=== PATIENT | female | born 1985 | race Caucasian/White ===

== ENCOUNTER → 2019-01-22 10:16 | Outpatient (CLI) | payer OTHER, SELFPAY ==
[2019-01-22 09:53] VITALS: BMI 31.1
[2019-01-22 10:40] LABS: Absolute Lymphocyte Count 1.19 X10^3/ul (0.83-4.51); Absolute Neutrophil Count 2.8 X10^3/uL (2.0-7.7); Basophil# 0.03 X10^3/uL; Basophil% 0.7 % (0-1); Eosinophil# 0.07 X10^3/uL; Eosinophils% 1.6 % (0-5); Hematocrit 32.6 % (37-47); Hemoglobin 10.6 g/dl (12.0-15.0); Lymphocyte # 1.19 X10^3/ul (4.0); Lymphocyte % 26.7 % (19-41); Mean Corp Hgb Conc 32.5 g/gl (32-36); Mean Corpuscular Hgb 25.7 pg (27.0-32.0); Mean Corpuscular Volume 79.1 fL (81-99); Mean Platelet Vol. 9.7 fl (6.2-12.0); Monocyte# 0.37 X10^3/uL; Monocyte% 8.3 % (0-10); Neutrophil # 2.79 X10^3/uL (2.7-7.7); Neutrophil % 62.5 % (47-70); Platelet Count 217 K/mm3 (150-450); RBC Distribution Width CV 16.2 % (11.6-14.6); RBC Distribution Width SD 46.7 fl (35.1-43.9); Red Blood Count 4.12 M/mm3 (4.2-5.4); White Blood Count 4.5 K/mm3 (4.4-11.0)
[2019-01-22 10:41] LABS: POSITIVE COUNT NO; POSITIVE DIFFERENTIAL NO; POSITIVE MORPHOLOGY NO
[2019-01-22 11:06] LABS: T4 Free Direct 0.91 ng/dL (0.76-1.46); Thyroid Stim Hormone (TSH) 1.55 uIU/mL (0.358-3.74)
== END ==
PROVIDERS: Referring Provider Nurse Practitioner Women's Health; Visit Provider Nurse Practitioner Women's Health
DX: N92.1 Excessive and frequent menstruation with irregular cycle (principal)
CPT/HCPCS: 36415; 84439; 84443; 85025

== ENCOUNTER → 2019-02-04 13:18 | Outpatient (CLI) | payer OTHER, SELFPAY ==
[2019-01-22 09:53] VITALS: BMI 31.1
--- NOTE | 2019-02-04 13:20 | US_ITS ---
STUDY: ULTRASOUND OF THE FEMALE PELVIS - COMPLETE REASON FOR EXAM: Female, 33 years old. Dysfunctional uterine bleeding. LMP: January 03, 2019. TECHNIQUE: Transabdominal and Transvaginal TECHNICAL QUALITY: Adequate. COMPARISON: None. FINDINGS: The uterus is retroverted and is in a midline position. The uterus measures 7.7 cm x 6.2 cm x 6.0 cm. There is a Nabothian cyst of the cervix. The endometrium is thickened and measures 30.1 mm in thickness, and is hyperechoic. There is no demonstrated endometrial mass. There is no demonstrated myometrial mass. I.U.D. - The patient does not have an I.U.D. The right ovary is visualized. The right ovary measures 2.4 cm x 2.8 cm x 1.9 cm. A dominant follicle is seen within the right ovary measuring 1.4 cm x 0.9 cm x 1.3 cm. There is no visualized right adnexal mass or complex lesion. There is normal arterial and normal venous vascularity. The left ovary is visualized. The left ovary measures 3.4 cm x 2.4 cm x 1.6 cm. A dominant follicle is seen within it measuring 1.6 cm x 1.2 cm x 1.0 cm. There is no visualized left adnexal mass or complex lesion. There is normal arterial and normal venous vascularity. There is no fluid in the cul-de-sac. The pre void volume of the bladder was 410 ml. Polycystic ovary disease: No. US/Transvaginal Non- IMPRESSION: Thickened endometrium measuring 30.1 mm. Dominant follicles in both ovaries. Electronically Signed: Eric Grimes, at 12:44 EDT , Service support ,
--- NOTE | 2019-02-04 13:20 | US_ITS ---
STUDY: ULTRASOUND OF THE FEMALE PELVIS - COMPLETE REASON FOR EXAM: Female, 33 years old. Dysfunctional uterine bleeding. LMP: January 03, 2019. TECHNIQUE: Transabdominal and Transvaginal TECHNICAL QUALITY: Adequate. COMPARISON: None. FINDINGS: The uterus is retroverted and is in a midline position. The uterus measures 7.7 cm x 6.2 cm x 6.0 cm. There is a Nabothian cyst of the cervix. The endometrium is thickened and measures 30.1 mm in thickness, and is hyperechoic. There is no demonstrated endometrial mass. There is no demonstrated myometrial mass. I.U.D. - The patient does not have an I.U.D. The right ovary is visualized. The right ovary measures 2.4 cm x 2.8 cm x 1.9 cm. A dominant follicle is seen within the right ovary measuring 1.4 cm x 0.9 cm x 1.3 cm. There is no visualized right adnexal mass or complex lesion. There is normal arterial and normal venous vascularity. The left ovary is visualized. The left ovary measures 3.4 cm x 2.4 cm x 1.6 cm. A dominant follicle is seen within it measuring 1.6 cm x 1.2 cm x 1.0 cm. There is no visualized left adnexal mass or complex lesion. There is normal arterial and normal venous vascularity. There is no fluid in the cul-de-sac. The pre void volume of the bladder was 410 ml. Polycystic ovary disease: No. US/Pelvic (Non ) IMPRESSION: Thickened endometrium measuring 30.1 mm. Dominant follicles in both ovaries. Electronically Signed: Eric Grimes, at 12:44 EDT , Service support ,
[2019-02-04 14:53] LABS: Ferritin 9 ng/mL (8-252); Iron 258 ug/dL (50-170)
[2019-02-05 12:16] LABS: Transferrin 317 mg/dL (200-370)
== END ==
PROVIDERS: Nurse Practitioner Women's Health; Referring Provider Obstetrics & Gynecology; Visit Provider Obstetrics & Gynecology
DX: D64.9 Anemia, unspecified (principal); N93.9 Abnormal uterine and vaginal bleeding, unspecified
CPT/HCPCS: 36415; 76830; 76856; 82728; 83540; 84466

== ENCOUNTER 2019-03-28 06:48 | Day surgery (SDC) | payer OTHER, SELFPAY ==
[2019-01-22 09:53] VITALS: BMI 31.1
[2019-03-19 11:46] VITALS: BMI 31.1
--- NOTE | 2019-03-20 03:00 | HP.PCM_ITS ---
- Problem List (1) Irregular menses Status: Acute Comment: d and c hysteroscopy History and Physical Date of Admission: 03/28/19 Vital Signs 03/19/19 Body Mass Index (BMI) 31.1 03/19/19 Height 5 ft 2.75 in 03/19/19 Weight: 173 lb 03/19/19 Body Mass Index (BMI) 30.9 03/19/19 Blood Pressure 108/60 Intake Visit Reasons: pre op D&C Chief Complaint: pre op D&C [employer] History Professor Required: No Is patient in pain?: No Allergies No Known Allergies Allergy (Verified 03/19/19 11:45) Is last menstrual period known: No Post menopausal: No Patient : No : No PFS Medical History Anemia (Acute) Surgical History S/P (Resolved) [place] teeth removed (Resolved) Family History Father Diabetes Heart disease COPD (chronic obstructive pulmonary disease) Prostate cancer Mother Asthma Grandfather Lung cancer Heart disease Grandmother Pancreatic cancer Social History Smoking Status: Former smoker alcohol intake: current details: occasionally substance use type: does not use caffeine: Yes what type of physical activity do you participate in: walking, aerobics frequency: 3-4 times per week seatbelt use: always do you feel safe at home: Yes additional social history: Xjmrcuh-Gqls-Slpj Care 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 she has had irregular menses with heavy prolonged bleeding despite medical management and was recommended by another provider to have a d and c done but she had a change in insurance and needs done here. Pregancy History 4 Elective abortions Hx Para 5 Spontaneous abortions Hx # Term Pregnancies Ectopic pregnancies Hx # Pregnancies Multiple births 1 # of living children Past Pregnancies Del. Date Name GA/Weeks Outcome Route Bth Weight Gen Labor Lgth Anesthesia Del Locatn Provider FOB Unknown Cassandra-2003 Unknown Salena-2006 Unknown Carolina-2012 Unknown Pancho-2016 ROS Const Constitutional: Reports system reviewed and no additional complaints, except as docu Eyes Eyes: Reports system reviewed and no additional complaints, except as docu GI GI: Denies abdominal pain or change in bowel habits : Reports as per HPI Exam Const General: no acute distress Nutritional Appearance: well nourished Orientation: oriented x3 HENMT Head: normal to inspection Eyes General: appearance normal, both eyes and all related structures Neck Neck: normal visual inspection Resp Effort & Inspection: normal respiratory effort Cardio Rate: regular rate GI Inspection: normal to inspection Palpation: soft Assessment & Plan Problems 1. Irregular menses N92.6 d and c hysteroscopy Plan discussed options of d and c hysteroscopy alone versus this plus iud insertion or molly ablation. patient wishes to proceed with d and c alone. discussed surgical risks including risks of anesthesia, infection, bleeding, injury to bowel, bladder or blood vessels, and patient wishes to proceed with surgery. Coding Level of Care Code No Charge Diagnoses Irregular menses N92.6 UPDATE- I have seen the patient and performed any clinically relevant updates to the history and physical exam. Darcy Monk MD
[2019-03-28 07:09] VITALS: BP 126/70; PULSE 93; RESP 16; TEMP 36.8; O2SAT 100; BMI 31.0
[2019-03-28 07:13] LABS: Internal QC Validated? YES +Cl - CLEAR BKGD; Pregnancy, Urine Negative Negative
[2019-03-28 07:21] LABS: Hematocrit 36.3 % (37-47); Mean Corp Hgb Conc 33.1 g/gl (32-36); Mean Corpuscular Hgb 25.9 pg (27.0-32.0); Mean Corpuscular Volume 78.2 fL (81-99); Mean Platelet Vol. 11.3 fl (6.2-12.0); Platelet Count 225 K/mm3 (150-450); RBC Distribution Width CV 12.6 % (11.6-14.6); RBC Distribution Width SD 35.3 fl (35.1-43.9); Red Blood Count 4.64 M/mm3 (4.2-5.4); Scan Indicated on CBC? Y/N NO; White Blood Count 5.3 K/mm3 (4.4-11.0)
--- NOTE | 2019-03-28 08:15 | EMB_PTH ---
PATIENT: POLI MAJANO [place] [facility] [place][id number] AGE/SX: 33/F ROOM: RE03/28/[address]: Dr. Darcy Monk MD : 1985 BED: DIS: 03/28/2019 SPEC #: [id number] RECD: 03/28/19 09:41 STATUS: JIMMY ARCHANA #: [id number] PAUL: 03/28/19 08:[address]: Darcy Monk DEPT: SURGICAL PATHOLOGY RECD BY: Yosvany West ENTERED: 03/28/19 10:52 SP TYPE: ENDOM BX/C SHIRA DR: Out of [facility] Doctor Tissues: Endometrium, NOS Procedures: Surgery Specimen Level IV HEADER OPERATION: Hysteroscopy, dilation and curettage PRE-OP DIAGNOSIS: Irregular menses TISSUE SUBMITTED: Endometrial curettings MICROSCOPIC DIAGNOSIS Endometrium, curettings: Simple hyperplasia without atypia. Rare fragments of benign superficial endocervix. AM:jacob 03/29/19 MICROSCOPIC DESCRIPTION Slides are reviewed. GROSS DESCRIPTION Received in fixative is one container labeled with the patient's name and designated endometrial curettings. The specimen consists of multiple irregular fragments of light olivo soft tissue that in aggregate measure 6 x 4 x 0.2 cm. The specimen is totally submitted in four cassettes. / CE:jacob 03/28/19 TC:5 CPT: 81417
--- NOTE | 2019-03-28 09:01 | PCM.OPRPT ---
Problem List (1) Irregular menses Status: Acute Comment: d and c hysteroscopy Report of Operation Date of Procedure: 03/28/19 Pre-Operative Diagnosis: abNormal uterine bleeding Post-Operative Diagnosis: same Surgery/Procedure Performed:: D&C hysteroscopy Description of Surgical Findings:: Thickened anterior lining Type of Anesthesia:: Local MAC Specimen's removed: Endometrial curettings Estimated Blood Loss (mL): 25 Fluids Replaced: Crystalloid Description of Procedure: Patient was prepped and draped in a normal sterile fashion under MAC anesthesia. A weighted speculum was placed in the vagina and the anterior lip of the cervix was grasped with a single-tooth tenaculum. A paracervical block was placed with 1% lidocaine. Cervix was progressively dilated to allow passage of a 5 mm hysteroscope. The lining was fully visualized and noted to have thickened anterior lining. Uterine sounded to 9 cm. Curettage was performed and moderate amount of tissue was removed, sent to pathology. All instruments were removed from the vagina and excellent hemostasis was noted. Patient was awoken and taken to recovery in stable condition. - Complications None
[2019-03-28 09:05] VITALS: BP 126/70; BP 130/85; PULSE 89; RESP 16; TEMP 36.4; O2SAT 99
--- NOTE | 2019-03-28 09:05 | PCM.DC.D&C ---
Discharge Diet: No Restrictions Discharge Activity: Return to Normal Activity, May Shower, May Take a Tub Bath Allergies/Adverse Reactions: Allergies No Known Allergies Allergy (Verified 03/21/19 10:00) Medications to take at Discharge Biotin 1 mg PO DAILY 03/21/19 Loratadine [Claritin] 10 mg PO QHS 03/21/19 Multivitamin [Daily Multiple Vitamin] 1 each PO DAILY 03/21/19 Vitamin B Complex 1 each PO DAILY 03/21/19 Primary Care Physician: [facility] ,Out of [Primary Care Provider] - Test Results: Test results from this visit will be discussed in further detail at your follow-up appointment, if applicable. Please Follow Up With: Darcy Monk MD - [phone]
[2019-03-28 09:10] VITALS: BP 123/74; BP 126/70; PULSE 86; RESP 16; O2SAT 96
[2019-03-28 09:15] VITALS: BP 117/79; BP 126/70; PULSE 74; RESP 16; O2SAT 96
[2019-03-28 09:20] VITALS: BP 111/68; BP 126/70; PULSE 76; RESP 16; TEMP 36.2; O2SAT 94
[2019-03-28 09:56] VITALS: BP 126/70
== END 2019-03-28 10:00 | disposition home or self-care (01) ==
LOC: SDC 06:51 → AC 06:51
PROVIDERS: Anesthesiology; Referring Provider Obstetrics & Gynecology; Visit Provider Obstetrics & Gynecology
PROC: 0UDB8ZZ Extraction of Endometrium, Via Natural or Artificial Opening Endoscopic (ICD-10-PCS; CPT 58558; principal; 2019-03-28 08:05)
DX: N85.01 Benign endometrial hyperplasia (principal); N92.6 Irregular menstruation, unspecified; Z87.891 Personal history of nicotine dependence
CPT/HCPCS: 58558; 36415; 81025; 85027; 86850; 86900; 88305; J7120; J2405

== ENCOUNTER → 2019-09-04 16:50 | Outpatient (CLI) | payer OTHER, SELFPAY ==
--- NOTE | 2019-09-04 | EMB_PTH ---
PATIENT: POLI MAJANO LOC: [facility] U#:[id number] AGE/SX: 39/F ROOM: RE09/04/[address]: Dr. Darcy Monk MD : 1985 BED: DIS: SPEC #: [id number] RECD: 09/04/19 16:50 STATUS: JIMMY ARCHANA #: [id number] PAUL: 09/04/19 00:[address]: Darcy Monk DEPT: SURGICAL PATHOLOGY RECD BY: Yosvany West ENTERED: 09/05/19 08:52 SP TYPE: ENDOM BX/C SHIRA DR: Out of Town Doctor Tissues: Endometrium, NOS Procedures: Surgery Specimen Level IV HEADER OPERATION: Endometrial biopsy PRE-OP DIAGNOSIS: Abnormal uterine bleeding TISSUE SUBMITTED: Endometrial biopsy MICROSCOPIC DIAGNOSIS Endometrial biopsy: Consistent with exogenous hormone effect. Negative for immature hyperplasia. See comment. IZAIAH:jacob 09/06/19 COMMENT Please make reference to previous specimen ([id number]) endometrium, curettings with diagnosis of simple hyperplasia without atypia. MICROSCOPIC DESCRIPTION Slides are reviewed. GROSS DESCRIPTION Received is one container labeled with the patient's name and not further designated. The specimen consists of multiple irregular fragments of light olivo soft tissue that in aggregate measure 2 x 2 x 0.2 cm. The specimen is totally submitted in one cassette. / AM:jacob 09/05/19 TC:5 CPT:80940
[2019-09-04 12:05] VITALS: BMI 29.9
== END ==
PROVIDERS: Referring Provider Obstetrics & Gynecology; Visit Provider Obstetrics & Gynecology
DX: N93.9 Abnormal uterine and vaginal bleeding, unspecified (principal)
CPT/HCPCS: 88305

== ENCOUNTER → 2020-03-09 16:23 | Outpatient (CLI) | payer OTHER, SELFPAY ==
--- NOTE | 2020-03-09 | EMB_PTH ---
PATIENT: POLI MAJANO LOC: [facility] U#:[id number] AGE/SX: 39/F ROOM: RE03/09/[address]: Dr. Ramón Worthington MD : 1985 BED: DIS: SPEC #: [id number] RECD: 03/09/20 16:23 STATUS: JIMMY RELeah #: [id number] PAUL: 03/09/20 00:[address]: Darcy Monk DEPT: SURGICAL PATHOLOGY RECD BY: Jose Daniel Freeman ENTERED: 03/10/20 10:09 SP TYPE: ENDOM BX/C OTHR DR: Dr. Darcy Monk MD Tissues: Endometrium, NOS Procedures: Surgery Specimen Level IV Comments: @ Ordering doctor for SUIV edited from to @ by RGOOD at 03/11/20 1100 @ Submitting doctor edited from to @ by RGOOD at 03/11/20 1100 HEADER OPERATION: Endometrial biopsy PRE-OP DIAGNOSIS: Abnormal uterine bleeding TISSUE SUBMITTED: Endometrial lining MICROSCOPIC DIAGNOSIS Endometrial biopsy: Consistent with exogenous hormone effect with focal cystic changes. Negative for hyperplasia. IZAIAH:jacob 03/11/20 COMMENT Please make reference to previous specimens ([id number]) endometrium, curettings with diagnosis of simple hyperplasia without atypia and ([id number]) endometrial biopsy with diagnosis of consistent with exogenous hormone effect. MICROSCOPIC DESCRIPTION Slides are reviewed. GROSS DESCRIPTION Received is one container labeled with the patient's name and not further designated. The specimen consists of multiple fragments of hemorrhagic mucoid tissue that in aggregate measure 1.5 x 1.5 x 0.1 cm. The specimen is totally submitted in one cassette. / IZAIAH:jacob 03/10/20 TC:5 CPT: 54506
[2020-03-09 11:25] VITALS: BMI 31.0
== END ==
PROVIDERS: Referring Provider Internal Medicine Gastroenterology; Visit Provider Internal Medicine Gastroenterology
DX: N93.9 Abnormal uterine and vaginal bleeding, unspecified (principal)
CPT/HCPCS: 88305

== ENCOUNTER → 2020-08-10 16:49 | Outpatient (CLI) | payer OTHER, SELFPAY ==
[2020-08-10 13:07] VITALS: BMI 31.0
== END ==
PROVIDERS: Referring Provider Obstetrics & Gynecology; Visit Provider Obstetrics & Gynecology
DX: Z12.4 Encounter for screening for malignant neoplasm of cervix (principal)
CPT/HCPCS: 87624; 88175; G0145

== ENCOUNTER → 2022-09-21 | Outpatient (CLI) | payer OTHER, SELFPAY ==
[2022-09-21 10:47] LABS: Absolute Lymphocyte Count 1.34 X10^3/uL (0.83-4.51); Absolute Neutrophil Count 3.1 X10^3/uL (2.0-7.7); Basophil# 0.04 X10^3/uL; Basophil% 0.8 % (0-1); Hematocrit 42.6 % (37-47); Lymphocyte # 1.34 X10^3/ul (0.83-4.51); Lymphocyte % 26.5 % (19-41); Mean Corp Hgb Conc 35.2 g/dL (32-36); Mean Corpuscular Hgb 30.6 pg (27.0-32.0); Mean Corpuscular Volume 86.9 fL (81-99); Monocyte# 0.44 X10^3/uL; Monocyte% 8.7 % (0-10); NRBC Flagged by Analyzer 0 % (0-5); Neutrophil # 3.12 X10^3/uL (2.7-7.7); Neutrophil % 61.6 % (47-70); Platelet Count 210 K/mm3 (150-450); RBC Distribution Width CV 12.1 % (11.6-14.6); RBC Distribution Width SD 38.5 fl (35.1-43.9); White Blood Count 5.1 K/mm3 (4.4-11.0)
[2022-09-21 11:35] LABS: ALB/GLOB Ratio 1.2 RATIO (0.9-2.4); AST(SGOT) 15 U/L (15-37); Alanine Aminotransfer ALT/SGPT 20 U/L (13-56); Alkaline Phosphatase 50 U/L (45-117); Anion Gap 6 (5-15); BUN 9 mg/dL (7-18); BUN/Creat Ratio 15.4 RATIO (10-20); Calcium,Total 9.4 mg/dL (8.5-10.1); Chloride 108 mmol/L (98-107); Cholesterol 174 mg/dL (200); Creatinine, Serum 0.58 mg/dL (0.55-1.02); EST Glomerular Filtration Rate 123 mL/min (>60); Est Glom Filt Rate - Afr Amer 149 mL/min (>60); Globulin 3.4 g/dL (2.2-4.2); Glucose 97 mg/dL (74-106); Potassium 3.8 mmol/L (3.5-5.1); Protein, Total 7.4 g/dL (6.4-8.2); Sodium Level 141 mmol/L (136-145)
[2022-09-21 11:36] LABS: Vitamin D,25 Hydroxy 27.8 ng/mL
== END | disposition home or self-care (01) ==
PROVIDERS: Referring Provider Registered Nurse; Visit Provider Registered Nurse
DX: Z01.419 Encounter for gynecological examination (general) (routine) without abnormal findings (principal)
CPT/HCPCS: 36415; 80053; 82306; 82465; 85025